=== PATIENT | male | born 1970 | race Caucasian/White ===

== ENCOUNTER 2023-08-21 07:49 | Emergency (ER) | payer OTHER, SELFPAY ==
[2023-08-21 08:07] VITALS: BP 153/88
--- NOTE | 2023-08-21 08:43 | ED.GENMED ---
History of Present Illness
General
Chief Complaint: Nose Bleed
Time Seen by Provider: 08/21/23 08:21
Travel History
Have you had any contact with someone who has COVID-19?: No
Do you have any symptoms of coronavirus? Fever > 100 degrees, chills, cough, shortness of breath, sore throat, loss of taste or smell, muscle aches, or headache?: No
History of Present Illness
History of Present Illness:
53-year-old with history of hyperlipidemia presents to the emergency department for evaluation of recurrent right-sided nosebleeds over the past 3 days. Does not take antiplatelets or anticoagulants. Bleeding resolved with nasal packing or
pressure symptoms. Denies any nasal trauma.
Review of Systems
Review of Systems
Allergies reviewed?: Yes
All Other Systems: ROS reviewed and negative except as documented in HPI and ROS
Phy Exam
Physical Exam
Physical Exam:
GEN: Well appearing, NAD, WDWN
HEENT: Oral mucosa moist, no scleral icterus. Evidence of recent bleeding to the right anterior nare; no evidence for active bleeding. Nasal turbinates appear unremarkable bilaterally, no oropharyngeal bleeding noted
Cardiac: Regular rate
Lung: No respiratory distress, no tachypnea
MSK: No gross deformity or injuries
Skin: Good color, no pallor or jaundice, no rashes
Neuro: AO x3, moves all extremities freely
Psych: Calm, cooperative
Course
Vital Signs
Initial and Last Documented VS:
Initial Vital Signs
Temp Pulse Resp BP Pulse Ox
98.1 F 77 16 153/88 97
08/21/23 08:07 08/21/23 08:07 08/21/23 08:07 08/21/23 08:07 08/21/23 08:07
Last Documented Vital Signs
Temp Pulse Resp BP Pulse Ox
98.1 F 77 16 153/88 97
08/21/23 08:07 08/21/23 08:07 08/21/23 08:07 08/21/23 08:07 08/21/23 08:07
MDM/Problems Addressed
MDM/Problems Addressed:
No active epistaxis on exam. Evidence for recent bleeding in the R anterior nare. After topical application of epinephrine-soaked cotton ball and lidocaine anesthestic, the R anterior nare was cauterized w/ silver nitrate. Pt observed for 30 mins
post procedure w/o evidence for rebleed. ENT f/u recommended if persistent symptoms. Advised use of saline nasal sprays
*Critical Care Note
Total Time (30-74mins, 75-104mins- exclusive of procedures): Not Applicable
ED Attending Note
-
Portions of this chart may have been created with voice recognition software.� Occasional wrong word or��sound alike� substitutions may have occurred due to the inherent limitations of voice recognition software.
Discharge Plan
Departure
Patient Disposition: Home (Routine Discharge)
Date of Disposition: 08/21/23
Time of Disposition: 09:19
Patient with high blood pressure during this ER visit?: No
Discharge Problem:
Acute anterior epistaxis
Instructions: Nosebleeds (DC)
Referrals:
Nadine Lopez DO [Family Provider] -
Balaji Christian MD [Active] -
Interventions
Interventions:
*ED COVID-19 Vaccine History Last Done: 08/21/23 08:07
[2023-08-21 09:49] VITALS: BP 129/85
== END 2023-08-21 09:50 | disposition home or self-care (01) ==
LOC: EMR 07:49
PROVIDERS: EMERGENCY PHYSICIAN Emergency Medicine; FAMILY PHYSICIAN Internal Medicine
DX: R04.0 Epistaxis (principal)
CPT/HCPCS: 99283; 30901